=== PATIENT | male | born 1990 | race Caucasian/White ===

== ENCOUNTER 2019-04-21 20:03 | Emergency (ER) | payer OTHER ==
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
[2019-04-21 20:16] VITALS: BP 134/84
[2019-04-21] MEDS ORDERED: Ondansetron ODT TAB* 4 MG PO ONE (20:38)
== END 2019-04-21 20:43 | disposition home health service (06) ==
LOC: UCEAST 20:03
DX: R10.9 Unspecified abdominal pain (principal); E86.0 Dehydration; R11.10 Vomiting, unspecified; Z87.891 Personal history of nicotine dependence
CPT/HCPCS: 81002; 99212; A9270-GY; G0463